=== PATIENT | female | born 1965 | race Caucasian/White ===

== ENCOUNTER 2017-11-26 09:37 | Outpatient (CLI) | payer OTHER ==
--- NOTE | 2017-11-28 09:40 | Mammography Report ---
Reason: SCREENING MAMMO Procedure Date: 11/26/2017 Accession Number: [id number] / [id number] Procedure: MGS - Screening Mammo Dig Bilat CPT Code: FULL RESULT: EXAM: Screening Mammo Dig Bilat DATE: 11/26/2017 12:00 AM CLINICAL HISTORY: Screening mammogram TECHNIQUE: Bilateral CC and MLO views were obtained. COMPARISON: Mammogram 12/10/2015 FINDINGS: The breast parenchyma is extremely dense which may limit the sensitivity of mammography. No suspicious masses, clustered microcalcifications, or regions of architectural distortion are identified. IMPRESSION: BI-RADS Category 1. Negative. RECOMMENDATION: Routine annual screening unless otherwise clinically indicated. BIRADS CATEGORY 1: Negative. STANDARD QUALIFYING STATEMENTS: 1. This examination was reviewed with the aid of Computer-Aided Detection (CAD). 2. A negative or benign imaging report should not delay biopsy if clinically suspicious findings are present. Consider surgical consultation if warrented. More than 5% of cancers are not identified by imaging. 3. Dense breasts may obscure an underlying neoplasm.
== END 2017-11-26 09:38 | disposition home or self-care (01) ==
LOC: DI.S 09:37
PROVIDERS: ATTEND Family Medicine
DX: Z12.31 Encounter for screening mammogram for malignant neoplasm of breast (principal)
CPT/HCPCS: 77067

== ENCOUNTER 2017-11-27 08:26 | Outpatient (CLI) | payer OTHER ==
[2017-11-27 11:24] LABS: ALBUMIN 4.2 g/dL (3.2-5.5); ALBUMIN/GLOBULIN RATIO 1.5 (1.0-2.2); BILIRUBIN,TOTAL 0.6 mg/dL (0.2-1.0); CALCIUM 8.7 mg/dL (8.5-10.3); CREATININE 0.8 mg/dL (0.4-1.0)
== END 2017-11-27 08:27 | disposition home or self-care (01) ==
LOC: LAB.F 08:26
PROVIDERS: ATTEND Family Medicine
DX: I10 Essential (primary) hypertension (principal)
CPT/HCPCS: 36415; 80053

== ENCOUNTER 2020-04-13 12:41 | Outpatient (CLI) | payer OTHER ==
--- NOTE | 2020-04-14 10:27 | Mammography Report ---
BILATERAL DIGITAL SCREENING MAMMOGRAM 3D/2D: 04/13/2020 CLINICAL: Routine screening. Comparison is made to exams dated: 11/26/2017 mammogram and 12/10/2015 mammogram - [facility]. There are scattered fibroglandular elements in both breasts. No significant masses, calcifications, or other findings are seen in either breast. There has been no significant interval change. IMPRESSION: NEGATIVE There is no mammographic evidence of malignancy. A 1 year screening mammogram is recommended. This exam was interpreted at Station ID: [id number]. NOTE: For mammograms, a report in lay terms will be sent to the patient. Approximately 15% of breast malignancies will not be visualized mammographically. In the management of a palpable breast mass, a negative mammogram must not discourage biopsy of a clinically suspicious lesion. Electronically Signed By: Robby Corbin acr/penrad:04/13/2020 13:59:14 ACR BI-RADS Category 1: Negative 3341F PARENCHYMAL PATTERN: (A) - The breast(s) demonstrate(s) scattered fibroglandular densities. BI-RADS CATEGORY: (1) - 1 RECOMMENDATION: (ANNUAL) - Recommend routine annual screening mammography. [id number] 1 year screening LATERALITY: (B)
== END 2020-04-13 12:42 | disposition home or self-care (01) ==
LOC: DI.N 12:41
PROVIDERS: ATTEND Physician Assistant
DX: Z12.31 Encounter for screening mammogram for malignant neoplasm of breast (principal)

== ENCOUNTER 2020-05-19 07:19 | Day surgery (SDC) | payer OTHER ==
[2020-05-19] MEDS ORDERED: LACTATED RINGERS 1,000 ML IV ONE ×2 (07:28→09:00)
--- NOTE | 2020-05-19 08:12 | ANESTHESIA ---
Pre-Anesthesia VS, & Labs - Diagnosis screening, hx of polyps - Procedure colonoscopy Vital Signs: Temp Pulse Resp BP Pulse Ox 36.6 C 63 12 149/94 H 100 05/19/20 07:28 05/19/20 07:28 05/19/20 07:28 05/19/20 07:28 05/19/20 07:28 Height: 5 ft 1 in Weight (kg): 69.9 kg Body Mass Index: 29.1 BMI Classification: Overweight - NPO >8 hours - Is Patient ?: No - Lab Results Lab results reviewed: Yes Home Medications and Allergies Home Medications: Ambulatory Orders No Known Home Medications 05/19/20 No Known Home Medications 05/19/20 Allergies/Adverse Reactions: Allergies Allergy/AdvReac Type Severity Reaction Status Date / Time Sulfa (Sulfonamide AdvReac Intermediate Respiratory Verified 06/23/14 10:43 Antibiotics) Anes History & Medical History - Anesthetic History Anesthesia Complications: reports: No previous complications Family history of Anesthesia Complications: Denies Family history of Malignant Hyperthermia: Denies - Medical History Cardiovascular: reports: Murmur Pulmonary: reports: None Gastrointestinal: reports: None Urinary: reports: None Musculoskeletal: reports: None Endocrine/Autoimmune: reports: None Skin: reports: None - Surgical History General: reports: Colonoscopy Eyes Ears Nose Throat (EENT): reports: Other Gynecologic: reports: Other Exam General: Alert, Oriented x3, Cooperative Dental: WNL Mouth Openin Fingerbreadth Neck Mobility: Normal Mallampati classification: II Thyromental Distance: 4-6 cm Respiratory: Lungs clear, Normal breath sounds, No respiratory distress Cardiovascular: Regular rate Neurological: Normal speech Mental/Cognitive Status: Alert/Oriented X3, Normal for patient Cognitive Status: Within normal limits Plan Anesthesia Type: MAC Consent for Procedure(s) Verified and Reviewed: Yes Code Status: Attempt Resuscitation ASA classification: 1-Healthy patient Is this case an emergency?: No
[2020-05-19] MEDS ORDERED: PROPOFOL 200 MG/20 ML VIAL IVP ONE (08:33)
[2020-05-19] MEDS ORDERED: LIDOCAINE-MPF 2% 5 ML VIAL ONE (08:33)
[2020-05-19] MEDS ORDERED: GLYCOPYRROLATE 1 MG/5 ML VIAL ONE (08:57)
[2020-05-19 09:24] VITALS: BP 120/89
--- NOTE | 2020-05-19 16:11 | ANESTHESIA POST OP EVALUATION ---
Anesthesia Post Eval - Post Anesthesia Eval Vitals: Last Vital Signs Temp 36.1 C L 05/19/20 08:55 Pulse 66 05/19/20 09:24 Resp 20 05/19/20 09:24 BP 120/89 H 05/19/20 09:24 Pulse Ox 100 05/19/20 09:24 CV Function Including HR & BP: positive: Stable Pain Control: positive: Satisfactory Nausea & Vomiting: positive: Negative Mental Status: positive: Baseline Respiratory Status: Airway Patent Hydration Status: Satisfactory Anesthesia Complications: positive: None
== END 2020-05-19 07:20 | disposition home or self-care (01) ==
LOC: SDS 07:19
PROVIDERS: ATTEND Surgery
DX: Z12.11 Encounter for screening for malignant neoplasm of colon (principal); K57.30 Diverticulosis of large intestine without perforation or abscess without bleeding; Z86.010 Personal history of colon polyps; R01.1 Cardiac murmur, unspecified; E66.3 Overweight; Z68.29 Body mass index [BMI] 29.0-29.9, adult; Z79.82 Long term (current) use of aspirin
CPT/HCPCS: 45378; J7120

== ENCOUNTER 2023-12-10 13:56 | Outpatient (CLI) | payer BC ==
--- NOTE | 2023-12-11 09:44 | Mammography Report ---
BILATERAL DIGITAL SCREENING MAMMOGRAM 3D/2D: 12/10/2023 CLINICAL: Routine screening. Family history of breast cancer. Comparison is made to exams dated: 04/13/2020 mammogram, 11/26/2017 mammogram, and 12/10/2015 mammogram - [facility]. The breasts are heterogeneously dense, which may obscure small masses (category c / 51-75% glandular tissue). No significant masses, calcifications, or other findings are seen in either breast. There has been no significant interval change. IMPRESSION: NEGATIVE There is no mammographic evidence of malignancy. A 1 year screening mammogram is recommended. Based on Tyrer-Cuzick model (a risk assessment model), the patient's lifetime risk is 21.1% and her 1 0 year risk is 8.5%. If a patient has an elevated risk, a more comprehensive evaluation should be con sidered and/or a referral to a genetic counselor. The [employer], [employer], and NCCN Guidelines advise the consideration of Breast MRI as an adjunct to screening mammog miya in patients whose "Lifetime risk to develop breast cancer" is 20% or higher. This exam was interpreted at Station ID: [id number]. NOTE: For mammograms, a report in lay terms will be sent to the patient. Approximately 15% of breast malignancies will not be visualized mammographically. In the management of a palpable breast mass, a negative mammogram must not discourage biopsy of a clinically suspicious lesion. Electronically Signed By: Ashok Mcmillan M.D. [facility] [place]/carmela:12/11/2023 08:59:22 letter sent: No_Letter ACR BI-RADS Category 1: Negative PARENCHYMAL PATTERN: (D) - The breast(s) demonstrate(s) heterogeneously dense fibroglandular parmarilyny ma. BI-RADS CATEGORY: (1) - 1 RECOMMENDATION: (ANNUAL) - Recommend routine annual screening mammography. [id number] 1 year screening LATERALITY: (B)
== END 2023-12-10 13:57 | disposition home or self-care (01) ==
LOC: DI.S 13:56
PROVIDERS: ATTEND Nurse Practitioner Family
DX: Z12.31 Encounter for screening mammogram for malignant neoplasm of breast (principal); R92.333 Mammographic heterogeneous density, bilateral breasts; Z80.3 Family history of malignant neoplasm of breast